=== PATIENT | female | born 1975 | race Hispanic/Latino ===

== ENCOUNTER 2020-06-07 21:07 | Emergency (ER) | payer BC, SELFPAY ==
[~2020-06-07 21:07] MED LIST: Iopamidol-370 76% 500 ML 1 ML ONE
[2020-06-07] MEDS ORDERED: Ketorolac Tromethamine 30 MG/ML VIAL ONE (21:33)
[2020-06-07 21:54] LABS: #Lymphocytes 1.1 thou/uL (1.20-3.40); #Monocytes 0.4 thou/uL (0.11-0.59); #Neutrophils 4.2 thou/uL (1.40-6.50); %Basophils 0.9 % (0.0-1.0); %Lymphocytes 19.2 % (21.0-51.0); %Monocytes 6.2 % (0.0-10.0); %Neutrophils 73.7 % (42.0-75.0); Mean Corpuscular HGB CONC 35.2 g/dL (32.0-36.0); Mean Corpuscular Hemoglobin 32.2 pg (27.0-31.0); Mean Corpuscular Volume 91.5 fL (78.0-98.0); Mean Platelet Volume 7.3 fL (7.4-10.4); Platelet Count 268 thou/uL (130-400); RBC Distribution Width 11.6 % (11.5-14.5); Red Blood Cell (RBC) Count 4.04 mill/uL (4.20-5.40); White Blood Cell (WBC) Count 5.7 thou/uL (4.8-10.8)
[2020-06-07 21:58] LABS: BHCG - Serum Negative (NEGATIVE); Pregs Control Background? CLEAR/WHITE (CLR/WHITE); Pregs Control Bar Appear? YES (CONTROL BAR)
--- NOTE | 2020-06-07 22:01 | RAD ---
CHEST ONE VIEW: History: Cough, Covid positive. FINDINGS: Heart size within normal limits. Minimal increased density in both lung junior could represent early ground glass infiltrates. IMPRESSION: Suggestion of possible early minimal ground glass infiltrative lung change. POS: PINO
[2020-06-07 22:11] LABS: ALT (SGPT) 26 U/L (8-55); AST (SGOT) 26 U/L (5-34); Albumin 3.6 g/dL (3.5-5.0); Alkaline Phosphatase 91 U/L (40-110); Anion Gap 16 mmol/L (10-20); BUN (Urea Nitrogen) 11 mg/dL (7.0-18.7); Bilirubin, Total 0.4 mg/dL (0.2-1.2); Calc. Creatinine Clearance 0 mL/min (70-130); Calcium 7.8 mg/dL (7.8-10.44); Carbon Dioxide 20 mmol/L (22-29); Chloride 104 mmol/L (98-107); Globulin 3.7 g/dL (2.4-3.5); Glucose 107 mg/dL (70-105); Potassium 4.3 mmol/L (3.5-5.1); Protein, Total 7.3 g/dL (6.0-8.3); Sodium 136 mmol/L (136-145)
--- NOTE | 2020-06-08 07:32 | CT ---
CT ANGIO CHEST PERFORMED WITH IV CONTRAST ENHANCEMENT WITH 3D RECONSTRUCTIONS: Date: 06/07/2020 HISTORY: Worsening cough. FINDINGS: Bilateral infiltrative lung changes are very suspicious for COVID pneumonia. These changes are basil ar predominant and more in the posterior basal segments. No significant mediastinal or hilar adenopathy. Thoracic aorta is normal in caliber. There is fairly good pulmonary artery opacification. No CT evide nce for proximal embolus. No definite peripheral emboli are seen. Visualized liver parenchyma shows hypodensities within the left lobes, statistically most likely cyst s. IMPRESSION: Bilateral lung infiltrates very suspicious for COVID pneumonia. POS: PINO
--- NOTE | 2020-06-13 14:01 | EKG ---
Test Reason : Blood Pressure : / mmHG Vent. Rate : 105 BPM Atrial Rate : 105 BPM P-R Int : 144 ms QRS Dur : 080 ms QT Int : 328 ms P-R-T Axes : 033 007 025 degrees QTc Int : 433 ms Sinus tachycardia Otherwise normal ECG Confirmed by JR PUENTE DO ([id number]), visual effects editor DANIELLE PAZ ([id number]) on 06/13/2020 2:00:40 PM Referred By: Confirmed By:JR PUENTE DO
== END 2020-06-07 22:55 | disposition home or self-care (01) ==
LOC: ERS 21:07
DX: U07.1 COVID-19 (principal); J12.82 Pneumonia due to coronavirus disease 2019; F17.210 Nicotine dependence, cigarettes, uncomplicated
CPT/HCPCS: 36415; 71045; 71275; 80053; 83605; 84484; 84703; 85025; 85379; 87040; 93005; 96374; J1885; Q9967